=== PATIENT | female | born 2000 | race Caucasian/White ===

== ENCOUNTER 2021-05-01 10:21 | Emergency (ER) | payer BC, MEDICAID ==
[2021-05-01] MEDS ORDERED: Morphine 2 MG/ML SYRINGE IVPUSH ONE (16:09)
== END 2021-05-01 11:26 | disposition home or self-care (01) ==
LOC: FB.ED 10:21
DX: N94.6 Dysmenorrhea, unspecified (principal); N93.8 Other specified abnormal uterine and vaginal bleeding
CPT/HCPCS: 99283